=== PATIENT | female | born 1980 | race Caucasian/White ===

== ENCOUNTER 2019-03-14 17:09 | Emergency (ER) | payer MEDICAID ==
[~2019-03-14] VITALS: Ht 157.5 cm; Wt 78.9 kg
[2019-03-14 17:12] VITALS: Ht 157.5 cm; Wt 78.9 kg
[2019-03-14 18:32] LABS: PLATELET COUNT 152 x10^3mcL (130-400); RED CELL DISTRIBUTION WIDTH 13.3 % (11.5-14.5)
[2019-03-14 18:46] LABS: BAND NEUTROPHIL 3 % (0-10); BASOPHIL 0 % (0-2); MONOCYTE 3 % (0-7); SEGMENTED NEUTROPHILS 85 % (37-75)
[2019-03-14 18:48] LABS: CALCIUM 9.6 mg/dL (8.5-10.1); CARBON DIOXIDE 21.4 mmol/L (21-32); CHLORIDE SERUM 107 mmol/L (98-107); CREATININE SERUM 0.7 mg/dL (0.6-1.0); GFR1 > 60 mL/min; GLUCOSE SERUM 105 mg/dL (74-106); PLATELET MORPHOLOGY PLATELETS NORMAL; POTASSIUM SERUM 3.8 mmol/L (3.5-5.1); SODIUM SERUM 142 mmol/L (136-145); rbc morphology (normal/abnorm) NORMAL (NORMAL)
[2019-03-14 18:52] LABS: ALBUMIN 3.9 g/dL (3.4-5.0); ALKALINE PHOSPHATASE 86 U/L (46-116); ALT/SGPT 27 U/L (14-59); AST/SGOT 16 U/L (15-37); BILIRUBIN TOTAL 0.52 mg/dL (0.20-1.00); LIPASE 140 IU/L (73-393); TOTAL PROTEIN, SERUM 7.8 g/dL (6.4-8.2)
[2019-03-14 23:12] VITALS: BP 101/64
== END 2019-03-14 23:12 | disposition home or self-care (01) ==
LOC: ED 17:09
PROVIDERS: Emergency Medicine
DX: K29.70 Gastritis, unspecified, without bleeding (principal); Z98.890 Other specified postprocedural states
CPT/HCPCS: J2270; J2405; J3010; J3490; J7030; Q0092